=== PATIENT | female | born 1985 | race Two or more races ===

== ENCOUNTER 2020-10-09 08:30 | Outpatient (REF) | payer OTHER, SELFPAY ==
[2020-10-09 11:36] LABS: Iron 22 mcg/dL (30-160); Percent Iron Saturation 6 % (15-50); Total Iron Binding Capacity 364 mcg/dL (228-428); Unsaturated Iron Binding 342 ug/dL
[2020-10-09 11:39] LABS: Vitamin D 25-OH Total 18.2 ng/mL (>30)
[2020-10-09 12:11] LABS: Folate 17.2 ng/mL (> or = 4.0); Vitamin B12 < 146 pg/mL (200-900)
[2020-10-13 06:22] LABS: Vitamin B1 10 nmol/L (8-30)
[2020-10-13 09:26] LABS: Vitamin A 25 mcg/dL (38-98)
[2020-10-14 13:08] LABS: Zinc 63 mcg/dL (60-130)
== END 2020-10-09 08:31 | disposition home or self-care (01) ==
LOC: HO.LAB 08:30
PROVIDERS: PCP Physician Assistant; Visit Provider Physician Assistant
DX: E66.01 Morbid (severe) obesity due to excess calories (principal); Z68.43 Body mass index [BMI] 50.0-59.9, adult; K91.2 Postsurgical malabsorption, not elsewhere classified; Z98.84 Bariatric surgery status
CPT/HCPCS: 36415; 82306; 82607; 82746; 83540; 84425; 84590; 84630; 99202

== ENCOUNTER 2020-10-15 10:41 | Outpatient (REF) | payer OTHER, SELFPAY ==
--- NOTE | ~2020-10-15 | FL_ITS ---
EXAMINATION: XR GI SERIES CLINICAL INFORMATION: Postsurgical malabsorption COMPARISON: None TECHNIQUE: Upper GI was performed using thin and thick barium and effervescent granules. FINDINGS: Esophageal motility is normal. There is postsurgical changes from gastric bypass. There is a small gastric remnant. There is no evidence of obstruction or mass. No ulcer is seen. There is very mild gastroesophageal reflux. No esophageal hernia is seen. FLUOROSCOPY TIME: 1.2 minutes DOSE AREA PRODUCT: 13.6 garland per centimeter squared. 29 saved fluoroscopic images. FL/FL upper GI series IMPRESSION: Postsurgical changes from gastric bypass. Mild gastroesophageal reflux.
== END 2020-10-15 10:42 | disposition home or self-care (01) ==
LOC: HO.XRAY 10:41
PROVIDERS: Visit Provider Physician Assistant
DX: K91.2 Postsurgical malabsorption, not elsewhere classified (principal); E66.01 Morbid (severe) obesity due to excess calories; Z90.3 Acquired absence of stomach [part of]; Z98.84 Bariatric surgery status
CPT/HCPCS: 74240

== ENCOUNTER → 2020-10-16 08:15 | Outpatient (BNVA) | payer OTHER, SELFPAY | PROVIDERS: PCP Physician Assistant; Visit Provider Dietitian, Registered ==

== ENCOUNTER → 2020-11-18 08:06 | Outpatient (BNVA) | payer OTHER, SELFPAY | PROVIDERS: PCP Physician Assistant; Visit Provider Physician Assistant | DX: E66.01 Morbid (severe) obesity due to excess calories (principal); K91.2 Postsurgical malabsorption, not elsewhere classified; Z98.84 Bariatric surgery status; Z90.3 Acquired absence of stomach [part of] | CPT/HCPCS: Q3014 ==

== ENCOUNTER → 2020-11-20 09:33 | Outpatient (BNVA) | payer OTHER, SELFPAY | PROVIDERS: PCP Physician Assistant; Visit Provider Dietitian, Registered | DX: Z13.89 Encounter for screening for other disorder (principal) | CPT/HCPCS: 97803 ==

== ENCOUNTER → 2021-01-01 13:40 | Outpatient (BNVA) | payer OTHER, SELFPAY | PROVIDERS: Visit Provider Physician Assistant ==

== ENCOUNTER → 2021-02-12 09:35 | Outpatient (BNVA) | payer OTHER, SELFPAY | PROVIDERS: Visit Provider Physician Assistant | DX: E66.01 Morbid (severe) obesity due to excess calories (principal); K91.2 Postsurgical malabsorption, not elsewhere classified; Z68.42 Body mass index [BMI] 45.0-49.9, adult; Z98.84 Bariatric surgery status; Z90.3 Acquired absence of stomach [part of] | CPT/HCPCS: 99212 ==

== ENCOUNTER → 2021-03-12 13:07 | Outpatient (BNVA) | payer OTHER, SELFPAY | PROVIDERS: Visit Provider Physician Assistant | DX: E66.01 Morbid (severe) obesity due to excess calories (principal); K91.2 Postsurgical malabsorption, not elsewhere classified; R73.03 Prediabetes; Z68.42 Body mass index [BMI] 45.0-49.9, adult; Z88.6 Allergy status to analgesic agent; Z88.5 Allergy status to narcotic agent; Z79.899 Other long term (current) drug therapy; Z98.84 Bariatric surgery status | CPT/HCPCS: 99212 ==

== ENCOUNTER 2021-04-10 10:43 | Outpatient (REF) | payer OTHER, SELFPAY ==
[2021-04-10 12:03] LABS: MANUAL DIFF FLAG NO
[2021-04-10 12:16] LABS: Basophils Percent Auto 0.2 % (0-2); Eosinophils Percent Auto 0.7 % (0-4); Hematocrit 37.8 % (37-47); Hemoglobin 11.8 g/dl (12.0-16.0); Imm Gran Abs Auto 0.02 X10*3/uL (0.00-0.03); Imm Gran Pct Auto 0.3 % (0.0-0.4); Lymphocytes Absolute Auto 1.4 X10*3/uL (1.2-4.9); Lymphocytes Percent Auto 24.6 % (20-40); Mean Corpuscular HGB Conc 31.2 g/dl (31.0-35.0); Mean Corpuscular Hemoglobin 27.5 pg (27.0-33.0); Mean Corpuscular Volume 88.1 fL (80-98); Mean Platelet Volume 10.9 fL (9.4-12.3); Monocytes Absolute Auto 0.5 X10*3/uL (0.1-1.2); Monocytes Percent Auto 8.6 % (2-11); Neutrophils Absolute Auto 3.8 X10*3/uL (2.0-8.3); Neutrophils Percent Auto 65.6 % (45-73); Platelet Count 278 X10*3/uL (160-400); Red Blood Count 4.29 X10*6/uL (4.20-5.50); White Blood Count 5.7 X10*3/uL (4.8-10.8)
[2021-04-10 12:17] LABS: Estimated Average Glucose 120 mg/dL; Hemoglobin A1c % 5.8 %
[2021-04-10 12:35] LABS: Alanine Aminotransferase 16 U/L (0-31); Albumin Level 3.9 g/dL (3.5-5.0); Alkaline Phosphatase 98 U/L (39-117); Anion Gap 12 (12-20); Aspartate Amino Transferase 15 U/L (5-31); Bilirubin Total 0.5 mg/dL (0.0-1.0); Blood Urea Nitrogen 13 mg/dL (9-16); C Reactive Protein 0.23 mg/dL (< or = 0.50); Carbon Dioxide 28 mmol/L (22-29); Chloride 107 mmol/L (96-108); Cholesterol 147 mg/dL; Estimated Glomerular Filt Rate > 60; Glucose Random 108 mg/dL (60-115); HDL Cholesterol 55 mg/dL; Iron 66 mcg/dL (30-160); LDL Cholesterol Calculated 84 mg/dl; Percent Iron Saturation 17 % (15-50); Potassium 4.7 mmol/L (3.3-5.1); Sodium 142 mmol/L (135-145); Total Iron Binding Capacity 391 mcg/dL (228-428); Total Protein 6.7 g/dL (6.5-8.0); Triglycerides 40 mg/dL; Unsaturated Iron Binding 325 ug/dL
[2021-04-10 12:58] LABS: Ferritin 13 ng/mL (10-122); TSH reflex Free T4 0.65 uIU/mL (0.32-4.0); Vitamin D 25-OH Total 30.4 ng/mL (>30)
[2021-04-10 13:05] LABS: Folate 15.1 ng/mL (> or = 4.0); Vitamin B12 157 pg/mL (200-900)
[2021-04-13 13:02] LABS: Insulin Level Total 8.1 uIU/mL
[2021-04-13 13:41] LABS: Calcium (PTHI) 8.9 mg/dL (8.6-10.2); PTHI 58 pg/mL (14-64)
[2021-04-14 05:45] LABS: Zinc 68 mcg/dL (60-130)
[2021-04-15 13:30] LABS: Vitamin B1 <6 nmol/L (8-30)
[2021-04-16 18:22] LABS: Vitamin A 33 mcg/dL (38-98)
== END 2021-04-10 10:44 | disposition home or self-care (01) ==
LOC: HO.LAB 10:43
PROVIDERS: Visit Provider Physician Assistant
DX: E66.01 Morbid (severe) obesity due to excess calories (principal); Z98.84 Bariatric surgery status
CPT/HCPCS: 36415; 80053; 80061; 82306; 82607; 82728; 82746; 83036; 83525; 83540; 83970; 84425; 84443; 84590; 84630; 85025; 86140

== ENCOUNTER → 2021-05-01 10:46 | Outpatient (BNVA) | payer OTHER, SELFPAY | PROVIDERS: Visit Provider Dietitian, Registered | DX: E66.9 Obesity, unspecified (principal); Z68.42 Body mass index [BMI] 45.0-49.9, adult | CPT/HCPCS: 97803 ==

== ENCOUNTER 2024-06-12 09:06 | Outpatient (AMB) | payer MEDICAID, SELFPAY ==
--- NOTE | 2024-06-12 09:17 | MHC.OFFVIS ---
Vital Signs 06/12/24 09:28 Height 5 ft 5 in Weight 286 lb BMI 47.6 Intake Visit Reasons: [employer] BODY- Chronic RT knee pain Intake Note: Trang is a 39 year old female who presents with complaints of progressively worsening right knee pain. The patient states that her pain has gotten worse over the last few years. She did injure her right knee several years ago when she ?slipped on the ice several times?. Since that time her symptoms have gotten progressively worse in spite of continued non operative treatments. She has failed the last 3 months of conservative treatment which has included a home exercise program, topical creams, anti-inflammatory medicines and Tylenol. The patient also went to formal physical therapy which aggravated her pain. She has had cortisone injections in the past which gave her no relief. Most of the pain is along the anterior aspect of her right knee. At this point her right knee pain is interfering with her activities of daily living and her ability to sleep well through the night. Allergies acetaminophen [From Percocet] Allergy (Severe, Verified 06/12/24 09:28) Anaphylaxis morphine Allergy (Severe, Verified 06/12/24 09:28) Anaphylaxis oxycodone [From Percocet] Allergy (Severe, Verified 06/12/24 09:28) Anaphylaxis Medication List - Last Reconciled 06/12/24 by Wing Morales MD cholecalciferol (vitamin D3) 1,250 mcg PO QWEEK metformin 500 mg PO BID multivitamin 1 tab PO DAILY vit,[id number] 29 mg iron- 1 mg 1 tab PO DAILY vit A palmitate-beta carotene 25,000 unit (15K-10K unit) 1 tab PO DAILY 2 weeks [facility] Medical History BMI 45.0-49.9, adult Intestinal malabsorption following gastrectomy Morbid obesity Pre-diabetes Surgical History History of cervical cerclage Hx of section Hx of gastric bypass Family History Mother Diabetes Hypertension Hyperlipidemia Heart disease Father Diabetes Heart disease Hyperlipidemia Hypertension Brother No problems noted. Brother Diabetes Heart disease Hyperlipidemia Hypertension Brother Diabetes Heart disease Hyperlipidemia Hypertension Brother No problems noted. Sister Diabetes Heart disease Hyperlipidemia Hypertension Daughter No problems noted. Social History Alcohol intake: current Alcohol intake frequency: holidays/special occasions only Patient Tobacco Use Status: Never used Tobacco Physical Exam Const Other: Well-nourished well-developed very friendly female awake alert and oriented x3 in no acute distress Extrem Other: Bilateral lower extremity examination shows good capillary refill, no skin lesions noted, normal sensation light touch Right knee examination shows a minimal effusion, palpable crepitus with range of motion, pain with range motion, no instability Results Reviewed Results Reviewed: X-rays of the patient's right knee show moderate to severe joint space narrowing most significant in the patellofemoral joint, subchondral sclerosis, no acute bony abnormalities Assessment & Plan Assessment & Plan (1) Osteoarthritis of right knee: Code(s): M17.11 - Unilateral primary osteoarthritis, right knee Category: Medical Plan Ms. Renteria presents with progressively worsening right knee pain due to osteoarthritis. I had a lengthy discussion with the patient regarding the treatment options. The patient wishes to hold off on joint replacement surgery for as long as possible. I agree with this plan. I will see whether or not the patient's insurance company will cover a viscosupplementation injection such as Durolane. I will see her back once the injection is available. Feel free to call me at any time should questions regarding her orthopedic management arise. Thank you very much for asking me to see this very friendly patient. I spent 20 minutes in reviewing the patient's records and imaging studies, seeing the patient and documenting in the medical record. Orders: Orders XR knee RT 3V Today M25.561 - Pain in right knee Coding Level of Care Code New Pt Level 3 (44838) Complex EM visit Add On G2211 Diagnoses Osteoarthritis of right knee M17.11
[2024-06-12 09:28] VITALS: BMI 47.6
== END 2024-06-12 09:36 | disposition home or self-care (01) ==
PROVIDERS: PCP Physician Assistant; Visit Provider Orthopaedic Surgery
DX: M17.11 Unilateral primary osteoarthritis, right knee (principal)
CPT/HCPCS: 99203

== ENCOUNTER 2024-06-12 10:36 | Outpatient (REF) | payer MEDICAID, SELFPAY ==
--- NOTE | ~2024-06-12 | XR_ITS ---
EXAMINATION: XR KNEE RIGHT 3 VIEWS CLINICAL INFORMATION: Pain in right knee M25.561. COMPARISON: None available TECHNIQUE: Three views of the right knee. FINDINGS: Alignment is anatomic. There is marked patellofemoral cartilage space loss. There are tricompartmental osteophytes. No displaced fracture. No significant suprapatellar joint effusion. XR/XR knee RT 3V IMPRESSION: Marked patellofemoral osteoarthritis. Electronically signed by: Hernandez Macias MD 08/02/2024 02:13 PM [facility]
== END 2024-06-12 10:37 | disposition home or self-care (01) ==
LOC: HO.HOSX 10:36
PROVIDERS: Visit Provider Orthopaedic Surgery
DX: M25.561 Pain in right knee (principal); M17.11 Unilateral primary osteoarthritis, right knee; G89.29 Other chronic pain
CPT/HCPCS: 73562; 99202

== ENCOUNTER 2024-07-16 14:45 | Outpatient (AMB) | payer MEDICAID, SELFPAY ==
--- NOTE | 2024-07-16 14:54 | MHC.OFFVIS ---
Vital Signs 07/16/24 15:00 Height 5 ft 5 in Weight 286 lb BMI 47.6 Intake Visit Reasons: Inj- Right Knee Euflexxa #1 Intake Note: Trang is a 39 year old female who presents with complaints of progressively worsening right knee pain. The patient states that her pain has gotten worse over the last few years. She did injure her right knee several years ago when she ?slipped on the ice several times?. Since that time her symptoms have gotten progressively worse in spite of continued non operative treatments. She has failed the last 3 months of conservative treatment which has included a home exercise program, topical creams, anti-inflammatory medicines and Tylenol. The patient also went to formal physical therapy which aggravated her pain. She has had cortisone injections in the past which gave her no relief. Most of the pain is along the anterior aspect of her right knee. At this point her right knee pain is interfering with her activities of daily living and her ability to sleep well through the night. Allergies acetaminophen [From Percocet] Allergy (Severe, Verified 07/16/24 15:00) Anaphylaxis morphine Allergy (Severe, Verified 07/16/24 15:00) Anaphylaxis oxycodone [From Percocet] Allergy (Severe, Verified 07/16/24 15:00) Anaphylaxis Medication List - Last Reconciled 07/17/24 by Wing Morales MD cholecalciferol (vitamin D3) 1,250 mcg PO QWEEK metformin 500 mg PO BID metformin 500 mg PO DAILY multivitamin 1 tab PO DAILY vit,[id number] 29 mg iron- 1 mg 1 tab PO DAILY vit A palmitate-beta carotene 25,000 unit (15K-10K unit) 1 tab PO DAILY 2 weeks [facility] Medical History BMI 45.0-49.9, adult Intestinal malabsorption following gastrectomy Morbid obesity Pre-diabetes Surgical History History of cervical cerclage Hx of section Hx of gastric bypass Family History Mother Diabetes Hypertension Hyperlipidemia Heart disease Father Diabetes Heart disease Hyperlipidemia Hypertension Brother No problems noted. Brother Diabetes Heart disease Hyperlipidemia Hypertension Brother Diabetes Heart disease Hyperlipidemia Hypertension Brother No problems noted. Sister Diabetes Heart disease Hyperlipidemia Hypertension Daughter No problems noted. Social History Alcohol intake: current Alcohol intake frequency: holidays/special occasions only Patient Tobacco Use Status: Never used Tobacco Physical Exam Vital Signs: BMI result Body Mass Index 47.6 Const Other: Well-nourished well-developed very friendly female awake alert and oriented x3 in no acute distress Extrem Other: Bilateral lower extremity examination shows good capillary refill, no skin lesions noted, normal sensation light touch Right knee examination minimal effusion, palpable crepitus with range of motion, pain with range of motion, range of motion from -3 degrees to 115 degrees, no instability Office Procedures AMB Joint Injection/Aspiration Joint Injection/Aspiration Primary Site: right knee Prep: site was prepped using aseptic technique Injected: 20 mg of (Euflexxa viscosupplementation) and 1% plain lidocaine Procedure: The patient tolerated the procedure well Coding - Large joint Procedure code (CPT) selection complete Results Reviewed Results Reviewed: X-rays of the patient's right knee taken previously show joint space narrowing, subchondral sclerosis, no acute bony abnormalities Assessment & Plan Assessment & Plan (1) Osteoarthritis of right knee: Code(s): M17.11 - Unilateral primary osteoarthritis, right knee Category: Medical Plan Ms. Renteria presents with right knee pain due to osteoarthritis. I had a lengthy discussion with the patient regarding the treatment options. The risks and benefits of a series of 3 Euflexxa injections were discussed at length with the patient. The patient wished to proceed. She tolerated the 1st injection well. She will continue with her home exercise program. She will contact me prior to her follow-up appointment next weeks should any questions or concerns arise. Feel free to call me at any time should questions regarding her orthopedic management arise. I spent 20 minutes in reviewing the patient's records and imaging studies, seeing the patient and documenting in the medical record. Orders: Orders AMB Joint Injection/Aspiration 07/16/24 M17.11 - Unilateral primary osteoarthritis, right knee Coding Level of Care Code Est Pt Level 3 (03122) Complex EM visit Add On G2211 Diagnoses Osteoarthritis of right knee M17.11 CPT Codes Coding - Large joint: 95133 - Large joint ([id number])
[2024-07-16 15:00] VITALS: BMI 47.6
== END 2024-07-16 15:31 | disposition home or self-care (01) ==
PROVIDERS: PCP Physician Assistant; Visit Provider Orthopaedic Surgery
DX: M17.11 Unilateral primary osteoarthritis, right knee (principal)
CPT/HCPCS: 20610; 99213

== ENCOUNTER → 2024-07-16 14:45 | Outpatient (BNVA) | payer MEDICAID, SELFPAY | PROVIDERS: PCP Physician Assistant; Visit Provider Orthopaedic Surgery | DX: M17.11 Unilateral primary osteoarthritis, right knee (principal) | CPT/HCPCS: 20610; 99212; J2003; J7323 ==

== ENCOUNTER 2024-07-24 09:50 | Outpatient (AMB) | payer MEDICAID, SELFPAY ==
--- NOTE | 2024-07-24 09:51 | MHC.OFFVIS ---
Vital Signs 07/24/24 09:55 Height 5 ft 5 in Weight 286 lb BMI 47.6 Intake Visit Reasons: Inj- Right Knee Euflexxa #2 Intake Note: Trang is a 39 year old female who presents for follow-up of her right knee pain. She states that she got mild relief from the 1st Euflexxa injection. She denies any fevers or chills. She continues with her home exercise program. Allergies acetaminophen [From Percocet] Allergy (Severe, Verified 07/24/24 09:55) Anaphylaxis morphine Allergy (Severe, Verified 07/24/24 09:55) Anaphylaxis oxycodone [From Percocet] Allergy (Severe, Verified 07/24/24 09:55) Anaphylaxis Medication List - Last Reconciled 07/25/24 by Wing Morales MD cholecalciferol (vitamin D3) 1,250 mcg PO QWEEK metformin 500 mg PO DAILY multivitamin 1 tab PO DAILY vit,[id number] 29 mg iron- 1 mg 1 tab PO DAILY vit A palmitate-beta carotene 25,000 unit (15K-10K unit) 1 tab PO DAILY 2 weeks [facility] Medical History BMI 45.0-49.9, adult Intestinal malabsorption following gastrectomy Morbid obesity Pre-diabetes Surgical History History of cervical cerclage Hx of section Hx of gastric bypass Family History Mother Diabetes Hypertension Hyperlipidemia Heart disease Father Diabetes Heart disease Hyperlipidemia Hypertension Brother No problems noted. Brother Diabetes Heart disease Hyperlipidemia Hypertension Brother Diabetes Heart disease Hyperlipidemia Hypertension Brother No problems noted. Sister Diabetes Heart disease Hyperlipidemia Hypertension Daughter No problems noted. Social History Alcohol intake: current Alcohol intake frequency: holidays/special occasions only Patient Tobacco Use Status: Never used Tobacco Physical Exam Vital Signs: BMI result Body Mass Index 47.6 Extrem Other: Right knee examination shows a minimal effusion, palpable crepitus with range of motion, pain with range of motion, no instability Office Procedures AMB Joint Injection/Aspiration Joint Injection/Aspiration Primary Site: right knee Prep: site was prepped using aseptic technique Injected: 20 mg of (Euflexxa viscosupplementation) and 1% plain lidocaine Procedure: The patient tolerated the procedure well Coding 34648 - Large joint Procedure code (CPT) selection complete Results Reviewed Results Reviewed: X-rays of the patient's right knee taken previously show joint space narrowing, subchondral sclerosis, no acute bony abnormalities Assessment & Plan Assessment & Plan (1) Osteoarthritis of right knee: Code(s): M17.11 - Unilateral primary osteoarthritis, right knee Category: Medical Plan Ms. Renteria presents with right knee pain due to osteoarthritis. The risks and benefits of her 2nd Euflexxa injection were discussed at length with the patient. The patient wished to proceed. She tolerated the injection well. She will continue with her home exercise program. She will follow up next week as scheduled. Feel free to call me at any time should questions regarding her orthopedic management arise. Orders: Orders AMB Joint Injection/Aspiration 07/24/24 M17.11 - Unilateral primary osteoarthritis, right knee Coding Level of Care Code Procedure Only Diagnoses Osteoarthritis of right knee M17.11 CPT Codes Coding - 18729 Large joint: 92366 - Large joint ([id number])
[2024-07-24 09:55] VITALS: BMI 47.6
== END 2024-07-24 10:18 | disposition home or self-care (01) ==
PROVIDERS: PCP Physician Assistant; Visit Provider Orthopaedic Surgery
DX: M17.11 Unilateral primary osteoarthritis, right knee (principal)
CPT/HCPCS: 20610

== ENCOUNTER → 2024-07-24 09:50 | Outpatient (BNVA) | payer MEDICAID, SELFPAY | PROVIDERS: PCP Physician Assistant; Visit Provider Orthopaedic Surgery | DX: M17.11 Unilateral primary osteoarthritis, right knee (principal) | CPT/HCPCS: 20610; J2003; J7323 ==

== ENCOUNTER 2024-07-31 08:32 | Outpatient (AMB) | payer MEDICAID, SELFPAY ==
[2024-07-31 08:41] VITALS: BMI 47.6
--- NOTE | 2024-07-31 08:41 | A.OFFVIS_ITS ---
Vital Signs 07/31/24 08:41 Height 5 ft 5 in Weight 286 lb BMI 47.6 Intake Visit Reasons: Inj- Right Knee Euflexxa #3 Intake Note: Trang is a 39 year old female who presents for follow-up of her right knee pain. She states that she has gotten mild relief from the 1st 2 Euflexxa injections. She denies any fevers or chills Allergies acetaminophen [From Percocet] Allergy (Severe, Verified 07/31/24 08:41) Anaphylaxis morphine Allergy (Severe, Verified 07/31/24 08:41) Anaphylaxis oxycodone [From Percocet] Allergy (Severe, Verified 07/31/24 08:41) Anaphylaxis Medication List - Last Reconciled 07/31/24 by Wing Morales MD cholecalciferol (vitamin D3) 1,250 mcg PO QWEEK metformin 500 mg PO DAILY multivitamin 1 tab PO DAILY vit,[id number] 29 mg iron- 1 mg 1 tab PO DAILY vit A palmitate-beta carotene 25,000 unit (15K-10K unit) 1 tab PO DAILY 2 weeks [facility] Medical History BMI 45.0-49.9, adult Intestinal malabsorption following gastrectomy Morbid obesity Pre-diabetes Surgical History History of cervical cerclage Hx of section Hx of gastric bypass Family History Mother Diabetes Hypertension Hyperlipidemia Heart disease Father Diabetes Heart disease Hyperlipidemia Hypertension Brother No problems noted. Brother Diabetes Heart disease Hyperlipidemia Hypertension Brother Diabetes Heart disease Hyperlipidemia Hypertension Brother No problems noted. Sister Diabetes Heart disease Hyperlipidemia Hypertension Daughter No problems noted. Social History Alcohol intake: current Alcohol intake frequency: holidays/special occasions only Patient Tobacco Use Status: Never used Tobacco Physical Exam Vital Signs: BMI result Body Mass Index 47.6 Extrem Other: Right knee examination shows a minimal effusion, palpable crepitus with range of motion, pain with range of motion, no instability Results Reviewed Results Reviewed: X-rays of the patient's right knee taken previously show joint space narrowing, subchondral sclerosis, no acute bony abnormalities Assessment & Plan Assessment & Plan (1) Osteoarthritis of right knee: Code(s): M17.11 - Unilateral primary osteoarthritis, right knee Category: Medical Plan Ms. Renteria presents with right knee pain due to osteoarthritis. The risks and benefits of a 3rd Euflexxa injection were discussed at length with the patient. The patient wished to proceed. She tolerated the injection well. She will continue with her home exercise program. She will contact me prior to her follow-up appointment in 3 months should any questions or concerns arise. Feel free to call me at any time should questions regarding her orthopedic management arise. Orders: Orders AMB Joint Injection/Aspiration Today M17.11 - Unilateral primary osteoarthritis, right knee Coding Level of Care Code Procedure Only Diagnoses Osteoarthritis of right knee M17.11
== END 2024-07-31 09:00 | disposition home or self-care (01) ==
PROVIDERS: PCP Physician Assistant; Visit Provider Orthopaedic Surgery
DX: M17.11 Unilateral primary osteoarthritis, right knee (principal)
CPT/HCPCS: 20610

== ENCOUNTER → 2024-07-31 08:32 | Outpatient (BNVA) | payer MEDICAID, SELFPAY | PROVIDERS: PCP Physician Assistant; Visit Provider Orthopaedic Surgery | DX: M17.11 Unilateral primary osteoarthritis, right knee (principal) | CPT/HCPCS: 20610; J2003; J7323 ==

== ENCOUNTER 2024-11-15 08:23 | Outpatient (AMB) | payer MEDICAID, SELFPAY ==
--- NOTE | 2024-11-15 08:27 | MHC.OFFVIS ---
Intake Visit Reasons: OV- Right Knee pain follow up Intake Note: Trang is a 39 year old female who presents for follow-up of her right knee pain. At her last visit on 07/31/24 patient completed Euflexxa gel injection series. She reports this provided relief her with relief. She has intermittent pressure due to a recent fall the last snow storm. She had swelling however this subsided after a week or two. She continues with her home exercise program. Allergies acetaminophen [From Percocet] Allergy (Severe, Verified 11/15/24 08:29) Anaphylaxis morphine Allergy (Severe, Verified 11/15/24 08:29) Anaphylaxis oxycodone [From Percocet] Allergy (Severe, Verified 11/15/24 08:29) Anaphylaxis Medication List - Last Reconciled 11/15/24 by Wing Morales MD cholecalciferol (vitamin D3) 1,250 mcg PO QWEEK metformin 500 mg PO DAILY multivitamin 1 tab PO DAILY vit,[id number] 29 mg iron- 1 mg 1 tab PO DAILY vit A palmitate-beta carotene 25,000 unit (15K-10K unit) 1 tab PO DAILY 2 weeks [facility] Medical History BMI 45.0-49.9, adult Intestinal malabsorption following gastrectomy Morbid obesity Pre-diabetes Surgical History History of cervical cerclage Hx of section Hx of gastric bypass Family History Mother Diabetes Hypertension Hyperlipidemia Heart disease Father Diabetes Heart disease Hyperlipidemia Hypertension Brother No problems noted. Brother Diabetes Heart disease Hyperlipidemia Hypertension Brother Diabetes Heart disease Hyperlipidemia Hypertension Brother No problems noted. Sister Diabetes Heart disease Hyperlipidemia Hypertension Daughter No problems noted. Social History Alcohol intake: current Alcohol intake frequency: holidays/special occasions only Patient Tobacco Use Status: Never used Tobacco Physical Exam Const Other: Well-nourished well-developed very friendly female awake alert and oriented x3 in no acute distress Extrem Other: Right knee examination shows a minimal effusion, mild crepitus with range of motion, pain with range of motion, no instability Results Reviewed Results Reviewed: X-rays of the patient's right knee taken previously show joint space narrowing, subchondral sclerosis, no acute bony abnormalities Assessment & Plan Assessment & Plan (1) Osteoarthritis of right knee: Code(s): M17.11 - Unilateral primary osteoarthritis, right knee Category: Medical Plan Ms. Renteria continues to do well after undergoing 3 right knee Euflexxa injections. She will continue with her home exercise program. If her pain returns I will see whether or not her insurance company will cover a another set of 3 injections. Feel free to call me at any time should questions regarding her orthopedic management arise. Coding Level of Care Code Est Pt Level 3 (33238) Complex EM visit Add On G2211 Diagnoses Osteoarthritis of right knee M17.11
== END 2024-11-15 08:37 | disposition home or self-care (01) ==
LOC: HO.HOS 08:24
PROVIDERS: PCP Physician Assistant; Visit Provider Orthopaedic Surgery
DX: M17.11 Unilateral primary osteoarthritis, right knee (principal)
CPT/HCPCS: 99213

== ENCOUNTER → 2024-11-15 08:23 | Outpatient (BNVA) | payer MEDICAID, SELFPAY | PROVIDERS: PCP Physician Assistant; Visit Provider Orthopaedic Surgery | DX: M17.0 Bilateral primary osteoarthritis of knee (principal) | CPT/HCPCS: 99212 ==